=== PATIENT | male | born 1980 | race African-American/Black ===

== ENCOUNTER 2020-04-14 20:32 | Emergency (ER) | payer OTHER, SELFPAY ==
[2020-04-14 20:36] VITALS: BP 149/71; PULSE 81; RESP 20; TEMP 36.6; O2SAT 96
[2020-04-14 20:48] VITALS: PULSE 84; RESP 20; O2SAT 97
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
[2020-04-14 21:13] VITALS: BP 154/91; PULSE 67; RESP 18; TEMP 36.6; O2SAT 97
== END 2020-04-14 21:15 | disposition left against medical advice (07) ==
PROVIDERS: Emergency Provider Emergency Medicine
DX: F43.22 Adjustment disorder with anxiety (principal); F17.200 Nicotine dependence, unspecified, uncomplicated
CPT/HCPCS: 99283

== ENCOUNTER 2020-06-09 20:34 | Emergency (ER) | payer OTHER, SELFPAY ==
--- NOTE | ~2020-06-09 | XR_ITS ---
EXAMINATION: XR chest 2V EXAM DATE: 06/09/2020 21:22 INDICATION: Tachycardia. TECHNIQUE: Frontal and lateral projections of the chest obtained and reviewed. Comparison is made to prior examination from 12/29/2010. FINDINGS: Moderate hyperinflation. The lungs are clear. There are no pleural effusions. The cardio mediastinal silhouette is within normal limits. There is no pneumothorax suspected. The bones and s oft tissues are unremarkable. IMPRESSION: 1. No acute cardiopulmonary findings. 2. Hyperinflation. Reviewed, dictated and finalized at location G. GEMENT TECH
[2020-06-09 20:36] VITALS: BP 133/58; PULSE 105; RESP 24; TEMP 36.4; O2SAT 100
--- NOTE | 2020-06-09 20:42 | ECG_ITS ---
Measurements Intervals [place] Rate: 87 P: 70 SD: 142 QRS: 69 QRSD: 132 T: 53 QT: 408 QTc: 491 Interpretive Statements SINUS RHYTHM RIGHT BUNDLE BRANCH BLOCK ABNORMAL ECG Electronically Signed On 06-10-2020 8:04:17 VISCOSITY INSPECTOR by Nate Navas D.O.
[2020-06-09 21:02] LABS: Basophils Percent Auto 0.5 % (0.2-1.2); Eosinophils Absolute Auto 0.2 K/mm3 (0-0.3); Eosinophils Percent Auto 2.3 % (0-4.4); Hematocrit 43.9 % (42.0-52.0); Hemoglobin 14.8 g/dL (14.0-18.0); Immature Granulocyte Absolute 0.02 K/mm3 (0.00-0.031); Immature Granulocyte Percent A 0.2 % (0-0.5); Lymphocytes Absolute Auto 2.55 K/mm3 (0.9-3.2); Lymphocytes Percent Auto 30.7 % (18.3-44.2); Mean Corpuscular HGB Conc 33.7 g/dl (32-36); Mean Corpuscular Hemoglobin 31.8 pg (26-34); Mean Corpuscular Volume 94.2 fl (80-100); Mean Platelet Volume 8.5 fl (7.4-10.4); Monocytes Absolute Auto 0.4 K/mm3 (0.1-0.6); Monocytes Percent Auto 4.9 % (2.6-8.5); Neutrophils Absolute Auto 5.1 K/mm3 (1.3-6.7); Neutrophils Percent Auto 61.4 % (45.5-73.1); Platelet Count Result 376 k/mm3 (150-375); Red Blood Count 4.66 M/mm3 (4.6-6.20); Red Cell Distribution Width 13.5 % (11.5-14.5); White Blood Count 8.3 K/mm3 (4.5-10.0)
[2020-06-09 21:12] LABS: INR 0.9; Partial Thromboplastin Time 26.1 SECONDS (22.3-36.8); Prothrombin Time 12.8 Seconds (11.1-14.7)
[2020-06-09 21:14] LABS: Anion Gap 13 mmol/L (8-16); Blood Urea Nitrogen 16 mg/dL (9-20); Calcium 9.1 mg/dL (8.4-10.2); Carbon Dioxide 23 mmol/L (22-30); Chloride 101 mmol/L (98-107); Estimated Glomerular Filt Rate > 60; Glucose 84 mg/dL (75-110); Potassium 3.6 mmol/L (3.4-5.0); Sodium 137 mmol/L (137-145)
[2020-06-09 21:25] LABS: Troponin I < 0.012 ng/mL (0.000-0.034)
--- NOTE | 2020-06-09 21:53 | PC.NURSE ---
Aspirin not given per MD
[2020-06-09 22:42] LABS: Amphetamine Screen Urine Negative (Negative); Barbiturate Screen Urine Negative (Negative); Benzodiazepines Screen Urine Negative (Negative); Cannabinoid Screen Urine Negative (Negative); Cocaine Screen Urine Positive (Negative); Methadone Screen Urine Negative (Negative); Opiate Screen Urine Negative (Negative); Phencyclidine Screen Urine Negative (Negative)
--- NOTE | 2020-06-09 23:22 | ED.GENADULT ---
HPI - General Adult General Chief complaint: Arrhythmia/Palpitations Stated complaint: heart racing Time Seen by Provider: 06/09/20 21:32 History of Present Illness HPI narrative: Patient is a 39-year-old gentleman who presents the emergency department with chief complaint of palpitations. Patient reports he was drinking alcohol smoking marijuana and used some ecstasy tonight. The patient states he felt as though his heart was racing. Patient states that he felt a little short of breath at the same time as well. The patient states symptoms have improved as he is arrived in the emergency department and the patient is concerned that he may have been given something else. Patient denies cocaine use. Patient states that he has no abdominal pain no vomiting no diarrhea. Related Data Home Medications Medication Instructions Recorded Confirmed No Home Medications 04/14/20 04/14/20 Allergies Allergy/AdvReac Type Severity Reaction Status Date / Time No Known Allergies Allergy Unknown Verified 09/17/18 12:41 Review of Systems Review of Systems: Narrative: A 10 system review of systems was completed on the patient and is negative except for what is stated in the HPI. Nursing and ancillary documentation was reviewed. [facility] Social History Social History Social History: Patient reports smoking and using alcohol occasionally Second hand tobacco smoke exposure: No Comments Patient denies past medical history Social history the patient reports recreational alcohol and recreational marijuana use Exam Narrative: Exam Narrative: GENERAL: Well-appearing, well-nourished, and in no acute distress. HEAD: Normocephalic, atraumatic. EYES: PERRLA and EOMI. ENT: Nares clear, no rhinorrhea or epistaxis. Mucous membranes moist. NECK: Supple. CHEST: Clear to auscultation. No respiratory distress. HEART: Regular rate and rhythm. No murmur heard. Normal peripheral pulses. ABDOMEN: Soft, nontender, nondistended, normal active bowel sounds. EXTREMITIES: Normal range of motion. No edema. SKIN: Warm, dry, no rash. NEURO: No focal deficits. Alert and oriented x3. PSYCH: Normal mood and affect. Course Vital Signs Vital signs: Vital Signs Temperature 36.4 C 06/09/20 20:36 Pulse Rate 105 H 06/09/20 20:36 Respiratory Rate 24 H 06/09/20 20:36 Blood Pressure 133/58 L 06/09/20 20:36 Pulse Oximetry 100 06/09/20 20:36 Temperature 36.4 C 06/09/20 20:36 Pulse Rate 105 H 06/09/20 20:36 Respiratory Rate 24 H 06/09/20 20:36 Blood Pressure 133/58 L 06/09/20 20:36 Pulse Oximetry 100 06/09/20 20:36 Medical Decision Making Vital Signs Vital Signs: Vital Signs Temperature 36.4 C 06/09/20 20:36 Pulse Rate 105 H 06/09/20 20:36 Respiratory Rate 24 H 06/09/20 20:36 Blood Pressure 133/58 L 06/09/20 20:36 Pulse Oximetry 100 06/09/20 20:36 Temperature 36.4 C 06/09/20 20:36 Pulse Rate 105 H 06/09/20 20:36 Respiratory Rate 24 H 06/09/20 20:36 Blood Pressure 133/58 L 06/09/20 20:36 Pulse Oximetry 100 06/09/20 20:36 Lab Data Result diagrams: 06/09/20 20:54 06/09/20 20:55 Labs: Lab Results 06/09/20 06/09/20 06/09/20 Range/Units 20:54 20:55 20:55 WBC 8.3 (4.5-10.0) K/mm3 RBC 4.66 (4.6-6.20) M/mm3 Hgb 14.8 (14.0-18.0) g/dL Hct 43.9 (42.0-52.0) % MCV 94.2 (80-100) fl MCH 31.8 (26-34) pg MCHC 33.7 (32-36) g/dl RDW 13.5 (11.5-14.5) % Plt Count 376 H (150-375) k/mm3 MPV 8.5 (7.4-10.4) fl Immature Gran % (Auto) 0.2 (0-0.5) % Neut % (Auto) 61.4 (45.5-73.1) % Lymph % (Auto) 30.7 (18.3-44.2) % [place] % (Auto) 4.9 (2.6-8.5) % Eos % (Auto) 2.3 (0-4.4) % Baso % (Auto) 0.5 (0.2-1.2) % Lymph # (Auto) 2.55 (0.9-3.2) K/mm3 [place] # (Auto) 0.4 (0.1-0.6) K/mm3 Eos # (Auto) 0.2 (0-0.3) K/mm3 Baso # (Aut
[2020-06-09 23:48] VITALS: BP 107/63; PULSE 67; RESP 16; O2SAT 100
== END 2020-06-09 23:49 | disposition home or self-care (01) ==
PROVIDERS: Emergency Provider Emergency Medicine
DX: R00.2 Palpitations (principal); F17.200 Nicotine dependence, unspecified, uncomplicated; I45.10 Unspecified right bundle-branch block
CPT/HCPCS: 36415; 71046; 80048; 80307; 84484; 85025; 85610; 85730; 93005; 99284

== ENCOUNTER 2024-12-03 20:41 | Emergency (ER) | payer OTHER, SELFPAY ==
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
[2024-12-03 20:44] VITALS: BP 137/96; PULSE 87; RESP 22; TEMP 37; O2SAT 99
--- OUTSIDE RECORDS SUMMARY | 2024-12-03 20:44 | XMS_ITS | Clinical Summary ---
Author Organization [facility] Address [address] [place] [address] Care Team Providers Care Fitness Teacher Name Role Phone No, Physician Primary Care Provider [phone] Allergies No known active allergies Medications No known medications Active Problems Problem Noted Date Diagnosed Date Right bundle branch block 08/15/2020 Assessment & Plan (08/15/2020 3:58 PM EDGE TRIMMING MACHINE OPERATOR): Right bundle branch block which is probably chronic. Will try to trace old EKGs from [facility] and from [facility]. Will get an echo Doppler study to assess the LV systolic function and to make sure he does not have left or right ventricular cardiomyopathy. EKG today shows sinus bradycardia rate 47, right bundle branch block. Palpitations 08/15/2020 Assessment & Plan (08/15/2020 3:57 PM EDGE TRIMMING MACHINE OPERATOR): Etiology unclear. Most probably related to drinking. The recent CBC, electrolytes, TSH were within normal limits. No palpitations on this visit. Alcohol abuse 08/15/2020 Assessment & Plan (08/15/2020 3:56 PM EDGE TRIMMING MACHINE OPERATOR): He was strongly advised to cut down drinking. Social History Tobacco Use Types Packs/Day Years Used Date Smoking Tobacco: Every Day Cigarettes Smokeless Tobacco: Never Personal Safety Answer Date Recorded Getting School Help Needed Not on file 08/13 Sex and Gender Information Value Date Recorded Sex Assigned at Not on file Legal Sex Male 8:51 PM EDGE TRIMMING MACHINE OPERATOR Gender Identity Not on file Sexual Orientation Not on file Obstetrics History Last Filed Vital Signs Vital Sign Reading Time Taken Comments Blood Pressure 119/68 08/22/2020 4:28 AM EDGE TRIMMING MACHINE OPERATOR Pulse 72 08/22/2020 4:28 AM EDGE TRIMMING MACHINE OPERATOR Temperature 36.8 C (98.2 F) 08/22/2020 4:28 AM EDGE TRIMMING MACHINE OPERATOR Respiratory Rate - - Oxygen Saturation 97% 08/22/2020 4:28 AM EDGE TRIMMING MACHINE OPERATOR Inhaled Oxygen Concentration - - Weight 77.1 kg (170 lb) 08/22/2020 4:28 AM EDGE TRIMMING MACHINE OPERATOR Height 182.9 cm (6') 08/22/2020 4:28 AM EDGE TRIMMING MACHINE OPERATOR Body Mass Index 23.06 08/22/2020 4:28 AM EDGE TRIMMING MACHINE OPERATOR Plan of Treatment Not on file Insurance Care Teams Fitness Teacher Relationship Specialty Start Date End Date No, Physician PCP - General 07/22/20
--- OUTSIDE RECORDS SUMMARY | 2024-12-03 20:44 | XMS_ITS | Referral Summary ---
Author Organization [facility] Address [address] [place] [address] Care Team Providers Care Bag Washer Name Role Phone No, Physician Primary Care Provider [phone] Allergies No known active allergies Medications No known medications Active Problems Problem Noted Date Diagnosed Date Right bundle branch block 08/15/2020 Assessment & Plan (08/15/2020 3:58 PM BEEF SELECTOR): Right bundle branch block which is probably chronic. Will try to trace old EKGs from [facility] and from [facility]. Will get an echo Doppler study to assess the LV systolic function and to make sure he does not have left or right ventricular cardiomyopathy. EKG today shows sinus bradycardia rate 47, right bundle branch block. Palpitations 08/15/2020 Assessment & Plan (08/15/2020 3:57 PM BEEF SELECTOR): Etiology unclear. Most probably related to drinking. The recent CBC, electrolytes, TSH were within normal limits. No palpitations on this visit. Alcohol abuse 08/15/2020 Assessment & Plan (08/15/2020 3:56 PM BEEF SELECTOR): He was strongly advised to cut down drinking. Social History Tobacco Use Types Packs/Day Years Used Date Smoking Tobacco: Every Day Cigarettes Smokeless Tobacco: Never Personal Safety Answer Date Recorded Getting School Help Needed Not on file 08/13 Sex and Gender Information Value Date Recorded Sex Assigned at Not on file Legal Sex Male 8:51 PM BEEF SELECTOR Gender Identity Not on file Sexual Orientation Not on file Last Filed Vital Signs Vital Sign Reading Time Taken Comments Blood Pressure 119/68 08/22/2020 4:28 AM BEEF SELECTOR Pulse 72 08/22/2020 4:28 AM BEEF SELECTOR Temperature 36.8 C (98.2 F) 08/22/2020 4:28 AM BEEF SELECTOR Respiratory Rate - - Oxygen Saturation 97% 08/22/2020 4:28 AM BEEF SELECTOR Inhaled Oxygen Concentration - - Weight 77.1 kg (170 lb) 08/22/2020 4:28 AM BEEF SELECTOR Height 182.9 cm (6') 08/22/2020 4:28 AM BEEF SELECTOR Body Mass Index 23.06 08/22/2020 4:28 AM BEEF SELECTOR Plan of Treatment Not on file Insurance Care Teams Bag Washer Relationship Specialty Start Date End Date No, Physician PCP - General 07/22/20
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
--- OUTSIDE RECORDS SUMMARY | 2024-12-03 22:42 | XMS_ITS | Referral Summary ---
Author Organization [facility] Address [address] [place] [address] Care Team Providers Care Open Developer Operator Name Role Phone No, Physician Primary Care Provider [phone] Allergies No known active allergies Medications No known medications Active Problems Problem Noted Date Diagnosed Date Right bundle branch block 08/15/2020 Assessment & Plan (08/15/2020 3:58 PM PHYSICAL THERAPY INSTRUCTOR): Right bundle branch block which is probably chronic. Will try to trace old EKGs from [facility] and from [facility]. Will get an echo Doppler study to assess the LV systolic function and to make sure he does not have left or right ventricular cardiomyopathy. EKG today shows sinus bradycardia rate 47, right bundle branch block. Palpitations 08/15/2020 Assessment & Plan (08/15/2020 3:57 PM PHYSICAL THERAPY INSTRUCTOR): Etiology unclear. Most probably related to drinking. The recent CBC, electrolytes, TSH were within normal limits. No palpitations on this visit. Alcohol abuse 08/15/2020 Assessment & Plan (08/15/2020 3:56 PM PHYSICAL THERAPY INSTRUCTOR): He was strongly advised to cut down drinking. Social History Tobacco Use Types Packs/Day Years Used Date Smoking Tobacco: Every Day Cigarettes Smokeless Tobacco: Never Personal Safety Answer Date Recorded Getting School Help Needed Not on file 08/13 Sex and Gender Information Value Date Recorded Sex Assigned at Not on file Legal Sex Male 8:51 PM PHYSICAL THERAPY INSTRUCTOR Gender Identity Not on file Sexual Orientation Not on file Last Filed Vital Signs Vital Sign Reading Time Taken Comments Blood Pressure 119/68 08/22/2020 4:28 AM PHYSICAL THERAPY INSTRUCTOR Pulse 72 08/22/2020 4:28 AM PHYSICAL THERAPY INSTRUCTOR Temperature 36.8 C (98.2 F) 08/22/2020 4:28 AM PHYSICAL THERAPY INSTRUCTOR Respiratory Rate - - Oxygen Saturation 97% 08/22/2020 4:28 AM PHYSICAL THERAPY INSTRUCTOR Inhaled Oxygen Concentration - - Weight 77.1 kg (170 lb) 08/22/2020 4:28 AM PHYSICAL THERAPY INSTRUCTOR Height 182.9 cm (6') 08/22/2020 4:28 AM PHYSICAL THERAPY INSTRUCTOR Body Mass Index 23.06 08/22/2020 4:28 AM PHYSICAL THERAPY INSTRUCTOR Plan of Treatment Not on file Insurance Care Teams Open Developer Operator Relationship Specialty Start Date End Date No, Physician PCP - General 07/22/20
--- OUTSIDE RECORDS SUMMARY | 2024-12-03 22:42 | XMS_ITS | Clinical Summary ---
Author Organization [facility] Address [address] [place] [address] Care Team Providers Care Digester Name Role Phone No, Physician Primary Care Provider [phone] Allergies No known active allergies Medications No known medications Active Problems Problem Noted Date Diagnosed Date Right bundle branch block 08/15/2020 Assessment & Plan (08/15/2020 3:58 PM TECHNICAL SUPPORT 1 SOFTWARE ENGINEER): Right bundle branch block which is probably chronic. Will try to trace old EKGs from [facility] and from [facility]. Will get an echo Doppler study to assess the LV systolic function and to make sure he does not have left or right ventricular cardiomyopathy. EKG today shows sinus bradycardia rate 47, right bundle branch block. Palpitations 08/15/2020 Assessment & Plan (08/15/2020 3:57 PM TECHNICAL SUPPORT 1 SOFTWARE ENGINEER): Etiology unclear. Most probably related to drinking. The recent CBC, electrolytes, TSH were within normal limits. No palpitations on this visit. Alcohol abuse 08/15/2020 Assessment & Plan (08/15/2020 3:56 PM TECHNICAL SUPPORT 1 SOFTWARE ENGINEER): He was strongly advised to cut down drinking. Social History Tobacco Use Types Packs/Day Years Used Date Smoking Tobacco: Every Day Cigarettes Smokeless Tobacco: Never Personal Safety Answer Date Recorded Getting School Help Needed Not on file 08/13 Sex and Gender Information Value Date Recorded Sex Assigned at Not on file Legal Sex Male 8:51 PM TECHNICAL SUPPORT 1 SOFTWARE ENGINEER Gender Identity Not on file Sexual Orientation Not on file Obstetrics History Last Filed Vital Signs Vital Sign Reading Time Taken Comments Blood Pressure 119/68 08/22/2020 4:28 AM TECHNICAL SUPPORT 1 SOFTWARE ENGINEER Pulse 72 08/22/2020 4:28 AM TECHNICAL SUPPORT 1 SOFTWARE ENGINEER Temperature 36.8 C (98.2 F) 08/22/2020 4:28 AM TECHNICAL SUPPORT 1 SOFTWARE ENGINEER Respiratory Rate - - Oxygen Saturation 97% 08/22/2020 4:28 AM TECHNICAL SUPPORT 1 SOFTWARE ENGINEER Inhaled Oxygen Concentration - - Weight 77.1 kg (170 lb) 08/22/2020 4:28 AM TECHNICAL SUPPORT 1 SOFTWARE ENGINEER Height 182.9 cm (6') 08/22/2020 4:28 AM TECHNICAL SUPPORT 1 SOFTWARE ENGINEER Body Mass Index 23.06 08/22/2020 4:28 AM TECHNICAL SUPPORT 1 SOFTWARE ENGINEER Plan of Treatment Not on file Insurance Care Teams Digester Relationship Specialty Start Date End Date No, Physician PCP - General 07/22/20
--- OUTSIDE RECORDS SUMMARY | 2024-12-03 22:42 | XMS_ITS | Clinical Summary ---
Author Organization [facility] Address [address] [place] [address] Care Team Providers Care Habilitative Interventionist Name Role Phone Unavailable Primary Care Provider Unavailabl e Source Comments [facility],non-owned Affiliates and Associated Physician Practices is amultiple site organization consisting of ambulatory clinics and hospital sitesin [place], [place], [place]. This disclosure is being madepursuant to the Care Everywhere program and may not contain all information available regarding this patient. Last updated 18.[facility] [employer] Medications * Be aware that medications may [...] on file Legal Sex Male 5:47 PM ACADEMIC COMPUTING DIRECTOR Gender Identity Not on file Sexual Orientation Not on file Last Filed Vital Signs Vital Sign Reading Time Taken Comments Blood Pressure 112/45 07/30/2017 7:30 AM ACADEMIC COMPUTING DIRECTOR Pulse 68 07/30/2017 7:30 AM ACADEMIC COMPUTING DIRECTOR Temperature 36.2 C (97.1 F) 07/30/2017 6:46 AM ACADEMIC COMPUTING DIRECTOR Respiratory Rate 16 07/30/2017 6:46 AM ACADEMIC COMPUTING DIRECTOR Oxygen Saturation 100% 07/30/2017 7:30 AM ACADEMIC COMPUTING DIRECTOR Inhaled Oxygen Concentration - - Weight 72.6 kg (160 lb) 07/30/2017 6:48 AM ACADEMIC COMPUTING DIRECTOR Height 182.9 cm (6') 07/30/2017 6:46 AM ACADEMIC COMPUTING DIRECTOR Body Mass Index 21.7 07/30/2017 6:46 AM ACADEMIC COMPUTING DIRECTOR Plan of Treatment Health Maintenance Due Date [...]
[2024-12-03] MEDS: ACETAMINOPHEN 325 MG TABLET 650 MG PO (23:02)
[2024-12-03] MEDS: LIDOCAINE 5% PATCH 1 PATCH TRANSDERM (23:02)
[2024-12-03] MEDS: IBUPROFEN 600 MG TABLET PO (23:03)
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
== END 2024-12-03 23:05 | disposition home or self-care (01) ==
LOC: ANHED 22:41
PROVIDERS: Emergency Provider Emergency Medicine
DX: S06.0XAA Concussion with loss of consciousness status unknown, initial encounter (principal); F17.200 Nicotine dependence, unspecified, uncomplicated; Y08.02XA Assault by strike by baseball bat, initial encounter
CPT/HCPCS: 70450; 99284; A9270